=== PATIENT | male | born 2000 | race African-American/Black ===

== ENCOUNTER 2024-05-12 10:41 | Outpatient (RCR) | payer BC, SELFPAY | END 2024-05-14 07:51 | disposition home or self-care (01) | LOC: HEMC 10:41 | PROVIDERS: Visit Provider Internal Medicine Hematology & Oncology | DX: I26.99 Other pulmonary embolism without acute cor pulmonale (principal); Z79.01 Long term (current) use of anticoagulants; Z80.3 Family history of malignant neoplasm of breast; R06.02 Shortness of breath | CPT/HCPCS: G0463 ==